=== PATIENT | female | born 1945 | race Caucasian/White ===

== ENCOUNTER 2024-09-27 17:22 | Emergency (ER) | payer OTHER ==
[2024-09-27 17:41] VITALS: RESP 18; BMI 28.1
[2024-09-27 18:00] VITALS: BP 142/84; PULSE 74; TEMP 98.1
[2024-09-27] MEDS ORDERED: ACETAMINOPHEN 500 MG TABLET (FP) ONE (18:24)
[2024-09-27] MEDS: ACETAMINOPHEN 325 MG TABLET (FP) PO ONE (18:26)
== END 2024-09-27 20:59 | disposition home or self-care (01) ==
LOC: FER 17:22
DX: S05.11XA Contusion of eyeball and orbital tissues, right eye, initial encounter (principal); W01.198A Fall on same level from slipping, tripping and stumbling with subsequent striking against other object, initial encounter
CPT/HCPCS: 70450-TC; 70486-TC; 99284-25